=== PATIENT | male | born 1995 | race Caucasian/White ===

== ENCOUNTER 2017-01-10 02:56 | Observation (INO) | payer MEDICARE, OTHER ==
[2017-01-10 03:34] LABS: Basophils # (A) 0.1 k/uL (0-0.2); Basophils % (A) 1 %; CH 34.5; CHCM 36.5; Eosinophils # (A) 0.9 k/uL (0-0.7); Eosinophils % (A) 12 %; HCT 49.3 % (39.0-53.0); HDW 2.75; HGB 17.8 gm/dL (13.0-17.5); Luc # (Auto) 0.24; Luc % (Auto) 3; Lymphocytes # (A) 2.6 k/uL (1.0-4.8); Lymphocytes % (A) 36 %; MCH 34.4 pg (25.0-35.0); MCHC 36.2 g/dL (31.0-37.0); MCV 94.9 fL (80.0-100.0); Mean Platelet Volume 7.6; Monocytes # (A) 0.5 k/uL (0-1.0); Monocytes % (A) 6 %; Neutrophils # (A) 3.1 k/uL (1.3-7.7); Neutrophils % (A) 42 %; RBC 5.19 m/uL (4.30-5.90); RDW 13.2 % (11.5-15.5); WBC 7.3 k/uL (4.0-11.0); WBC (Perox) 7.34
[2017-01-10 03:44] LABS: ALT 31 U/L (21-72); AST 34 U/L (17-59); Alkaline Phosphatase 116 U/L (38-126); Anion Gap 18 mmol/L; Blood Urea Nitrogen 11 mg/dL (9-20); Calcium 9.7 mg/dL (8.4-10.2); Carbon Dioxide 22 mmol/L (22-30); Chloride 101 mmol/L (98-107); Glucose 90 mg/dL (74-99); Non-African American GFR(MDRD) >60 (>60 ml/min/1.73 sqM); Potassium 4.5 mmol/L (3.5-5.1); Sodium 141 mmol/L (137-145); Total Bilirubin 0.6 mg/dL (0.2-1.3); Total Protein 7.8 g/dL (6.3-8.2)
[2017-01-10] MEDS ORDERED: ONDANSETRON 4 MG/2 ML VIAL IVP PRN (04:36)
[2017-01-10] MEDS ORDERED: NALOXONE 0.4 MG/ML 1 ML VIAL IV PRN (04:36)
[2017-01-10] MEDS ORDERED: LORazepam 1 MG TAB PO PRN (04:43)
[2017-01-10] MEDS: DEXTROSE 5%-0.45% NACL 1,000 ML IV SCH (04:53)
--- NOTE | 2017-01-10 04:54 | ED ---
General Adult HPI - General Chief complaint: Seizure Stated complaint: Seizure Time Seen by Provider: 01/10/17 03:15 Source: patient, family, EMS, RN notes reviewed Mode of arrival: EMS - History of Present Illness Initial comments: 21-year-old male with known seizure disorder presents after being found in his bed with generalized tonic-clonic seizure. Unknown how long seizure activity lasted for. He was transported to the hospital with approximate postictal period of 45 minutes to an hour. Patient has no complaints the time my evaluation. He is somewhat sleepy but able to answer questions. Denies headache. Denies chest pain shortness of breath, Numbness tingling, or focal weakness. Patient does live in a alf, is uncertain of the medications he takes, and he is uncertain of the neurologist that he sees. Additional history was obtained from the patient's father who is his guardian. He states that he has seizure disorder and cognitive delay. He believes that his medications were reduced approximately one 1 month ago because his son was seizure free for some time. He is uncertain which medications were changed. Patient does see a neurologist at the [facility]. Patient's father denies any other medical history. - Related Data Home Medications Medication Instructions Recorded Confirmed LORazepam [Ativan] 1 mg PO BID 03/02/16 03/02/16 Previous Rx's Medication Instructions Recorded Clobazam [Onfi] 20 mg PO BID #0 03/01/16 Divalproex [Depakote] 250 mg PO BID #60 tablet. 03/01/16 OXcarbazepine [Trileptal] 300 mg PO BID #60 tab 03/01/16 Allergies Allergy/AdvReac Type Severity Reaction Status Date / Time No Known Allergies Allergy Verified 02/03/16 07:25 Review of Systems ROS Statement: Those systems with pertinent positive or pertinent negative responses have been documented in the HPI. ROS Other: All systems not noted in ROS Statement are negative. Past Medical History Past Medical History: Seizure Disorder Additional Past Medical History / Comment(s): status epilepticus, hepatitis- History of Any Multi-Drug Resistant Organisms: None Reported Past Surgical History: No Surgical Hx Reported Past Anesthesia/Blood Transfusion Reactions: No Reported Reaction Additional Past Anesthesia/Blood Transfusion Reaction / Comment(s): Pt has never had surgery. Past Psychological History: Anxiety, Depression Smoking Status: Never smoker Past Alcohol Use History: None Reported Past Drug Use History: None Reported - Past Family History Father Additional Family Medical History / Comment(s): epilepsy in 2 paternal aunts, father of brain aneurysm Brother(s) Additional Family Medical History / Comment(s): Patient has one brother and one stepsister. Mother Additional Family Medical History / Comment(s): Patient is unable to provide any information regarding his family medical history. General Exam General appearance: in no apparent distress, lethargic Head exam: Present: atraumatic, normocephalic Eye exam: Present: normal appearance, PERRL, EOMI ENT exam: Present: mucous membranes moist, other (No lateral tongue laceration) Neck exam: Present: normal inspection, full ROM. Absent: meningismus Respiratory exam: Present: normal lung sounds bilaterally. Absent: respiratory distress Cardiovascular Exam: Present: regular rate, normal rhythm GI/Abdominal exam: Present: soft. Absent: distended, tenderness Extremities exam: Present: normal inspection, full ROM, normal capillary refill. Absent: pedal edema Neurological exam: Present: alert, oriented X3, CN II-XII intact, other ( Patient is alert and oriented 3, slow to respond.). Absent: motor sensory deficit Psychiatric exam: Present: normal affect, normal mood Skin exam: Present: warm, dry Course Vital Signs 01/10/17 01/10/17 02:57 04:37 Temperature 97.8 F Pulse Rate 105 H 76 Respiratory 16 14 Rate Blood Pressure 124/71 121/69 O2 Sat by Pulse 98 99 Oximetry - Reevaluation(s) Reevaluation #1: 01/10/17 04:49 On reevaluation the patient's somewhat more alert, neurologic exam remains nonfocal. Patient continues to have no complaints of the emergency department. EKG Findings - EKG Comments: EKG Findings:: EKG shows normal sinus rhythm with a ventricular rate of 92, UT interval is 126, QRS duration 84, QTC is 395 Medical Decision Making - Medical Decision Making 21-year-old male with history of cognitive delay, and seizure disorder presents with reported history of seizure and prolonged postictal period patient is seizure free while in the emergency department. Laboratory studies including CBC, CMP and lactic acid are significant only for mild lactic acidosis consistent with seizure. Patient's medications were recently adjusted, unknown exactly what changes were made. This history was obtained from the patient's father. Patient is on Depakote and Depakote level is therapeutic on the low end of normal. He also takes Onfi and Ativan. Patient will be placed on seizure precautions, he will be admitted for observation and neurology evaluation. This was discussed with the patient's father and he is agreeable. Diagnosis: Seizure with prolonged postictal period - Lab Data Result diagrams: 01/10/17 03:04 01/10/17 03:04 Lab Results 01/10/17 01/10/17 01/10/17 Range/Units 03:04 03:04 03:04 WBC 7.3 (4.0-11.0) k/uL RBC 5.19 (4.30-5.90) m/uL Hgb 17.8 H (13.0-17.5) gm/dL Hct 49.3 (39.0-53.0) % MCV 94.9 (80.0-100.0) fL MCH 34.4 (25.0-35.0) pg MCHC 36.2 (31.0-37.0) g/dL RDW 13.2 (11.5-15.5) % Plt Count 233 (150-450) k/uL Neutrophils % 42 % Lymphocytes % 36 % Monocytes % 6 % Eosinophils % 12 % Basophils % 1 % Neutrophils # 3.1 (1.3-7.7) k/uL Lymphocytes # 2.6 (1.0-4.8) k/uL Monocytes # 0.5 (0-1.0) k/uL Eosinophils # 0.9 H (0-0.7) k/uL Basophils # 0.1 (0-0.2) k/uL Sodium 141 (137-145) mmol/L Potassium 4.5 (3.5-5.1) mmol/L Chloride 101 (98-107) mmol/L Carbon Dioxide 22 (22-30) mmol/L Anion Gap 18 mmol/L BUN 11 (9-20) mg/dL Creatinine 1.00 (0.66-1.25) mg/dL Est GFR (MDRD) Af Amer >60 (>60 ml/min/1.73 sqM) Est GFR (MDRD) Non-Af >60 (>60 ml/min/1.73 sqM) Glucose 90 (74-99) mg/dL Plasma Lactic Acid Tyshawn 2.7 H* (0.7-2.0) mmol/L Calcium 9.7 (8.4-10.2) mg/dL Total Bilirubin 0.6 (0.2-1.3) mg/dL AST 34 (17-59) U/L ALT 31 (21-72) U/L Alkaline Phosphatase 116 (38-126) U/L Total Protein 7.8 (6.3-8.2) g/dL Albumin 4.8 (3.5-5.0) g/dL Valproic Acid 62.8 ug/mL Disposition Clinical Impression: Seizure disorder Disposition: ADMITTED IP TO THIS [facility] Condition: Stable Referrals: Fortino Polanco MD [Primary Care Provider] - 1-2 days Decision to Admit Reason: Admit from EC Decision Date: 01/10/17 Decision Time: 04:53
[2017-01-10 05:46] VITALS: BMI 23.8
[2017-01-10] MEDS: DIVALPROEX 250 MG TABLET.DR PO SCH (09:15)
--- NOTE | 2017-01-10 13:59 | P.HPIM ---
History of Present Illness 21-year-old male with known seizure disorder presents after being found in his bed with generalized tonic-clonic seizure. Unknown how long seizure activity lasted for. He was transported to the hospital with approximate postictal period of 45 minutes to an hour. Patient is still a bit bit lethargic when I valid the patient and patient denied any fever, chills, nausea, vomiting, abdominal pain, dysuria, headache patient was diagnosed with seizures since he was a child. Denies headache. Denies chest pain shortness of breath, Numbness tingling, or focal weakness. Patient does live in a retirement, is uncertain of the medications he takes, and he is uncertain of the neurologist that he sees. He believes that his medications were reduced approximately one 1 month ago because his son was seizure free for some time. The patient was on Depakote and Depakote levels are within normal limits and the patient is also on clobazam. He is uncertain which medications were changed. Patient does see a neurologist at the [facility]. Patient's father denies any other medical history. Review of Systems REVIEW OF SYSTEMS: CONSTITUTIONAL: No fever, no malaise, no fatigue. HEENT: No recent visual problems or hearing problems. Denied any sore throat. CARDIOVASCULAR: No chest pain, orthopnea, PND, no palpitations, no syncope. PULMONARY: No shortness of breath, no cough, no hemoptysis. GASTROINTESTINAL: No diarrhea, no nausea, no vomiting, no abdominal pain. Normoactive bowel sounds. NEUROLOGICAL: No headaches, no weakness, no numbness. HEMATOLOGICAL: Denies any bleeding or petechiae. GENITOURINARY: Denies any burning micturition, frequency, or urgency. MUSCULOSKELETAL/RHEUMATOLOGICAL: Denies any joint pain, swelling, or any muscle pain. ENDOCRINE: Denies any polyuria or polydipsia. The rest of the 14-point review of systems is negative. Past Medical History Past Medical History: Seizure Disorder Additional Past Medical History / Comment(s): status epilepticus, hepatitis- History of Any Multi-Drug Resistant Organisms: None Reported Past Surgical History: No Surgical Hx Reported Past Anesthesia/Blood Transfusion Reactions: No Reported Reaction Additional Past Anesthesia/Blood Transfusion Reaction / Comment(s): Pt has never had surgery. Past Psychological History: Anxiety, Depression Additional Psychological History / Comment(s): Pt lives now at [facility]. Prior to that he lived for 12 yrs with his LG Jose/Melanie Medina. He is independent with his ADLs. Jose states pt can have a temper. Smoking Status: Never smoker Past Alcohol Use History: None Reported Additional Past Alcohol Use History / Comment(s): Patient is a lifelong nonsmoker. He denies any medical marijuana, marijuana, street drug or alcohol use. Past Drug Use History: None Reported - Past Family History Father Additional Family Medical History / Comment(s): epilepsy in 2 paternal aunts, father of brain aneurysm Brother(s) Additional Family Medical History / Comment(s): Patient has one brother and one stepsister. Mother Additional Family Medical History / Comment(s): Patient is unable to provide any information regarding his family medical history. Medications and Allergies Home Medications Medication Instructions Recorded Confirmed Type LORazepam [Ativan] 1 mg PO BID PRN 03/02/16 01/10/17 History Allergies Allergy/AdvReac Type Severity Reaction Status Date / Time No Known Allergies Allergy Verified 01/10/17 07:56 Physical Exam Vitals: Vital Signs Temp Pulse Pulse Resp BP BP Pulse Ox 01/10/17 08:18 98 01/10/17 07:00 97.6 F 60 15 99/57 99 01/10/17 04:37 76 14 121/69 99 01/10/17 02:57 97.8 F 105 H 16 124/71 98 Intake and Output 01/09/17 01/10/17 01/10/17 22:59 06:59 14:59 Other: Voiding Method Urinal Weight 71 kg PHYSICAL EXAMINATION: GENERAL: The patient is alert and oriented x3, not in any acute distress. Well developed, well nourished. HEENT: Pupils are round and equally reacting to light. EOMI. No scleral icterus. No conjunctival pallor. Normocephalic, atraumatic. No pharyngeal erythema. No thyromegaly. CARDIOVASCULAR: S1 and S2 present. No murmurs, rubs, or gallops. PULMONARY: Chest is clear to auscultation, no wheezing or crackles. ABDOMEN: Soft, nontender, nondistended, normoactive bowel sounds. No palpable organomegaly. MUSCULOSKELETAL: No joint swelling or deformity. EXTREMITIES: No cyanosis, clubbing, or pedal edema. NEUROLOGICAL: Gross neurological examination did not reveal any focal deficits. SKIN: No rashes. Results CBC & Chem 7: 01/10/17 03:04 01/10/17 03:04 Labs: Abnormal Lab Results - Last 24 Hours (Table) 01/10/17 01/10/17 Range/Units 03:04 03:04 Hgb 17.8 H (13.0-17.5) gm/dL Eosinophils # 0.9 H (0-0.7) k/uL Plasma Lactic Acid Tyshawn 2.7 H* (0.7-2.0) mmol/L Thrombosis Risk Factor Assmnt - Choose All That Apply Any of the Below Risk Factors Present?: No Other Risk Factors: No Other congenital or acquired thrombophilia - If yes, enter type in comment: No Thrombosis Risk Factor Assessment Level: Very Low Risk Assessment and Plan Plan: #1 seizure disorder and patient is admitted for break through seizures: Patient will be continued on his Depakote levels of which are essentially within normal limits and patient will be resumed back on his other antiseizure medication clobazam and neurology will be consulted EEG will be obtained. Patient will be on seizure precautions. I do not see any prostrating factor for his seizures. #2 lactic is doses: Secondary to seizure patient will be continued on IV fluids.
[2017-01-10 19:28] LABS: Appearance,Urine Cloudy (Clear); Bilirubin,Urine Negative (Negative); Glucose,Urine (UA) Negative (Negative); Ketones,Urine Negative (Negative); Leukocyte Esterase,Urine Negative (Negative); Mucus,Urine Occasional /hpf; Nitrite,Urine Negative (Negative); Particle Count 13117; Protein,Urine 1+ (Negative); RBC,Urine 12 /hpf (0-5); Specific Gravity,Urine 1.016 (1.001-1.035); Sperm,Urine Many /hpf; Squamous Epithelial Cell,Urine 1 /hpf (0-4); UA Billing (MACRO vs. MICRO) MICRO; Urobilinogen,Urine <2.0 mg/dL (<2.0); WBC,Urine 13 /hpf (0-5)
[2017-01-10 20:18] VITALS: RESP 16
[2017-01-10] MEDS ORDERED: DIVALPROEX 250 MG TABLET.DR PO STA (22:44)
--- NOTE | 2017-01-10 22:51 | P.CNNES ---
History of Present Illness Consult date: 01/10/17 History of Present Illness: The patient is a 21-year-old left-handed white male with history of left see and admitted to delay. He is resident of [facility] home. He sees a neurologist at [facility] [place]. Apparently one of his seizure medications were reduced recently but family does not know which. The patient is admitted with a breakthrough seizure. This seizure was not witnessed and it is unknown how long it lasted. He did have a post ictal period of about 45 minutes to an hour. The patient is taking Depakote clobazam the and Trileptal for seizure management. The patient denies any headache dizziness weakness or numbness. He states he is feeling his usual self and has no particular pain or complaint. The patient has had seizures since childhood. He states that they do not occur very frequently. Review of Systems ROS unobtainable: due to mental status Past Medical History Past Medical History: Seizure Disorder Additional Past Medical History / Comment(s): status epilepticus, hepatitis- History of Any Multi-Drug Resistant Organisms: None Reported Past Surgical History: No Surgical Hx Reported Past Anesthesia/Blood Transfusion Reactions: No Reported Reaction Additional Past Anesthesia/Blood Transfusion Reaction / Comment(s): Pt has never had surgery. Past Psychological History: Anxiety, Depression Additional Psychological History / Comment(s): Pt lives now at [facility]. Prior to that he lived for 12 yrs with his LG Jose/Melanie Medina. He is independent with his ADLs. Jose states pt can have a temper. Smoking Status: Never smoker Past Alcohol Use History: None Reported Additional Past Alcohol Use History / Comment(s): Patient is a lifelong nonsmoker. He denies any medical marijuana, marijuana, street drug or alcohol use. Past Drug Use History: None Reported - Past Family History Father Additional Family Medical History / Comment(s): epilepsy in 2 paternal aunts, father of brain aneurysm Brother(s) Additional Family Medical History / Comment(s): Patient has one brother and one stepsister. Mother Additional Family Medical History / Comment(s): Patient is unable to provide any information regarding his family medical history. Medications and Allergies Home Medications Medication Instructions Recorded Confirmed Type LORazepam [Ativan] 1 mg PO BID PRN 03/02/16 01/10/17 History Allergies Allergy/AdvReac Type Severity Reaction Status Date / Time No Known Allergies Allergy Verified 01/10/17 07:56 Physical Examination - Vital Signs Vital Signs: Vital Signs Temp Pulse Pulse Pulse Resp BP BP 01/10/17 20:17 97.1 F L 83 16 102/61 01/10/17 16:00 15 01/10/17 15:00 97.9 F 60 16 108/64 01/10/17 08:18 01/10/17 07:00 97.6 F 60 15 99/57 01/10/17 04:37 76 14 121/69 01/10/17 02:57 97.8 F 105 H 16 124/71 Pulse Ox 01/10/17 20:17 97 01/10/17 16:00 01/10/17 15:00 97 01/10/17 08:18 98 01/10/17 07:00 99 01/10/17 04:37 99 01/10/17 02:57 98 Intake and Output 01/10/17 01/10/17 01/10/17 06:59 14:59 22:59 Intake Total 640 480 Balance 640 480 Intake: Intake, IV Titration 160 Amount Dextrose 5%-0.45% NaCl 1, 160 000 ml @ 20 mls/hr IV . Q24H [facility] Rx#:[id number] Oral 480 480 Other: Voiding Method Urinal Urinal Weight 71 kg - Constitutional General appearance: average body habitus - EENT EENT: PERRL, hearing intact, vision intact - Respiratory Respiratory: chest non-tender, lungs clear - Cardiovascular Cardiovascular: regular rate, normal S1, normal S2 - Integumentary Integumentary: normal - Neurologic Mental status the patient was awake and alert he knew he was in [facility] he was able to give his full name he did have mild cognitive impairment there is no a aphasia or dysarthria Cranial nerve examination: PERRL, EOMI, VFF, V1/V2/V3 grossly intact, face symmetric, tongue midline Speech examination: intact Sensorimotor examination: intact Detailed motor examination: grossly full strength in all extremities Motor examination - right side: 5/5: biceps, triceps, wrist flexion, wrist extension, catalog specialist, hip flexors, knee extensors, dorsiflexion, toe extension (EHL) , plantarflexion Motor examination - left side: 5/5: biceps, triceps, wrist flexion, wrist extension, catalog specialist, hip flexors, knee extensors, dorsiflexion, toe extension (EHL) , plantarflexion Reflexes: 2+: knee - Psychiatric Psychiatric: cooperative Results - Laboratory Findings CBC and BMP: 01/10/17 03:04 01/10/17 03:04 Abnormal Lab Findings: Abnormal Labs 01/10/17 01/10/17 01/10/17 03:04 03:04 19:14 Hgb 17.8 H Eosinophils # 0.9 H Plasma Lactic Acid Tyshawn 2.7 H* Urine Protein 1+ H Urine RBC 12 H Urine WBC 13 H Urine Mucus Occasional H Urine Sperm Many H Assessment and Plan (1) Recurrent seizures Status: Acute Code(s): G40.909 - EPILEPSY, UNSP, NOT INTRACTABLE, WITHOUT STATUS EPILEPTICUS (2) Seizure disorder Status: Acute Code(s): G40.909 - EPILEPSY, UNSP, NOT INTRACTABLE, WITHOUT STATUS EPILEPTICUS Plan: The patient is a 21-year-old man a resident of [facility] who presents to the hospital with breakthrough seizure. Duration of seizures on known since it was not witnessed. Patient is back to his baseline. He denies any complaint. His breakthrough seizure may have been related to the reduction of an anticonvulsant medication recently. His Depakote level is 62.8. Recommend giving higher dose of Depakote he is currently on 250 twice a day we'll increase Depakote to 250 3 times a day. He will continue on clobazam and Trileptal as before. Also recommend CT brain. He had an EEG which did not show any epileptiform activity
[2017-01-11] MEDS ORDERED: LORazepam 2 MG/ML SYRINGE IV STA (04:07)
[2017-01-11] MEDS ORDERED: LORazepam 2 MG/ML SYRINGE IV PRN (04:09)
--- NOTE | 2017-01-11 04:48 | EEG ---
DATE OF SERVICE: 01/10/2017 ELECTROENCEPHALOGRAPHIC EXAMINATION REPORT INDICATION FOR EXAMINATION: This patient is a 21-year-old male being evaluated for breakthrough seizures. Patient has history of seizure disorder and had breakthrough seizures today. Age: 21. EEG FINDINGS: A routine 21 channel awake, digital EEG recording was accomplished utilizing the 10-20 international system with bipolar and referential montages. The background activity in the most alert, resting state consists of a low to medium amplitude, fairly well developed and well sustained 7-8 Hz activity over the posterior head regions. This posterior rhythm attenuates to eye opening. There is a small amount of low amplitude 18-20 Hz beta activity seen maximally over the anterior head regions. Muscle and movement artifact was observed on a few occasions during the tracing. Hyperventilation was not performed. Photic stimulation at flash frequencies of 2 -30 Hz produced a minimal occipital driving response. No epileptiform discharges were seen. IMPRESSION: This EEG is within normal limits for the patient's age. The EEG failed to reveal any focal, lateralized or epileptiform abnormalities. Clinical correlation is recommended . [facility]
[2017-01-11] MEDS ORDERED: DIVALPROEX 250 MG TABLET.DR PO STA ×2 (05:59→15:19)
[2017-01-11] MEDS: DIVALPROEX 250 MG TABLET.DR PO SCH ×2 (06:01→09:50)
[2017-01-11] MEDS ORDERED: DIVALPROEX 250 MG TABLET.DR PO SCH (09:00)
--- NOTE | 2017-01-11 09:09 | CT ---
EXAMINATION TYPE: CT brain wo con DATE OF EXAM: 01/11/2017 COMPARISON: Previous study dated 02/11/2016. HISTORY: Seizure CT DLP: 1012.7 mGycm Automated exposure control for dose reduction was used. FINDINGS: Central structures are midline. There is no evidence of hydrocephalus. No acute focal lesion, mass ef fect or midline shift is seen. I do not see evidence of intracranial blood. Visualized portions of the paranasal sinuses and mastoids are clear. No depressed skull fracture is s een. IMPRESSION: NORMAL CT SCAN OF THE BRAIN.
[2017-01-11] MEDS: DEXTROSE 5%-0.45% NACL 1,000 ML IV SCH (09:32)
[2017-01-11] MEDS ORDERED: OXcarbazepine 300 MG TAB PO SCH (09:45)
[2017-01-11] MEDS ORDERED: ONFI 20 MG PO SCH (11:00)
[2017-01-11] MEDS: CLOBAZAM 20 MG PO SCH ×2 (11:05→11:06)
--- NOTE | 2017-01-11 11:59 | P.DS ---
Providers Date of admission: 01/10/17 04:36 Attending physician: Satinder Lackey Consults: 01/10/17 04:39 Consult Physician Urgent Consulting Provider: Mariya Diaz Consult Reason/Comments: Seizure with prolonged postictal period Do you want consulting provider notified?: Yes, Notify in am Primary care physician: [facility] Course: 21-year-old gentleman admitted for breakthrough seizures. Patient with episode of seizure as today as he didn't receive his clobazam. Patient was started back on this medication. And patient dose of valproic acid was increased to 250 3 times a day and patient did not have any seizure-like activity on the EEG. And patient was also started on Trileptal. Patient will be discharged on these medications once cleared by neurology. PHYSICAL EXAMINATION: GENERAL: The patient is alert and oriented x3, not in any acute distress. Well developed, well nourished. HEENT: Pupils are round and equally reacting to light. EOMI. No scleral icterus. No conjunctival pallor. Normocephalic, atraumatic. No pharyngeal erythema. No thyromegaly. CARDIOVASCULAR: S1 and S2 present. No murmurs, rubs, or gallops. PULMONARY: Chest is clear to auscultation, no wheezing or crackles. ABDOMEN: Soft, nontender, nondistended, normoactive bowel sounds. No palpable organomegaly. MUSCULOSKELETAL: No joint swelling or deformity. EXTREMITIES: No cyanosis, clubbing, or pedal edema. NEUROLOGICAL: Gross neurological examination did not reveal any focal deficits. SKIN: No rashes. #1 seizure disorder and patient is admitted for break through seizures: #2 lactic is doses: Secondary to seizure patient was on IV fluids. Patient Condition at Discharge: Stable Plan - Discharge Summary New Discharge Prescriptions: New Divalproex [Depakote] 250 mg PO TID #60 tab OXcarbazepine [Trileptal] 300 mg PO BID #60 tab Continue Clobazam [Onfi] 20 mg PO BID #0 LORazepam [Ativan] 1 mg PO BID PRN PRN Reason: Anxiety Discontinued Divalproex [Depakote] 250 mg PO BID #60 tablet.dr Discharge Medication List Clobazam [Onfi] 20 mg PO BID #0 03/01/16 [Rx] LORazepam [Ativan] 1 mg PO BID PRN 03/02/16 [History] Divalproex [Depakote] 250 mg PO TID #60 tab 01/11/17 [Rx] OXcarbazepine [Trileptal] 300 mg PO BID #60 tab 01/11/17 [Rx] Follow up Appointment(s)/Referral(s): Fortino Polanco MD [Primary Care Provider] - 3 Days Discharge Disposition: HOME SELF-CARE
[2017-01-11 14:00] VITALS: BP 102/62; PULSE 83; TEMP 97.2
== END 2017-01-11 17:16 | disposition home or self-care (01) ==
LOC: EC 02:56 → EEVIPCON 02:56 → 3SUR 04:36
PROVIDERS: ADMIT Hospitalist; ATTEND Hospitalist
DX: G40.401 Other generalized epilepsy and epileptic syndromes, not intractable, with status epilepticus (principal); Z79.899 Other long term (current) drug therapy; F41.9 Anxiety disorder, unspecified; G31.84 Mild cognitive impairment of uncertain or unknown etiology
CPT/HCPCS: 96374; 99285; 36415; 94760; 95816; 93005; 80164 ×2; 80053; 80183; 83605; 85025; 81001; 70450; G0378 ×2; J2060

== ENCOUNTER 2017-02-06 17:40 | Emergency (ER) | payer MEDICARE, OTHER ==
[2017-02-06 17:46] VITALS: BP 119/69; PULSE 88; RESP 18; TEMP 98.2
[2017-02-06] MEDS ORDERED: IBUPROFEN 600 MG TAB PO STA (17:55)
--- NOTE | 2017-02-06 18:17 | ED ---
Upper Extremity HPI - General Chief Complaint: Extremity Injury, Upper Stated Complaint: finger pain Time Seen by Provider: 02/06/17 17:53 Source: patient Mode of arrival: ambulatory Limitations: no limitations - History of Present Illness Initial Comments: 21-year-old male patient presented to emergency department today for evaluation of right fourth finger pain. Patient states that he was playing basketball earlier today however he is for any specific injury. Patient states that the finger is swollen, and painful with movement. Denies any numbness to the finger. Denies any hand, wrist, arm, or shoulder pain. Patient denies any falls. Patient denies any headache, neck pain, back pain, chest pain, shortness of breath, dizziness, weakness, abdominal pain, nausea, vomiting, or difficulties with bowel movements or urination. - Related Data Home Medications Medication Instructions Recorded Confirmed Clobazam [Onfi] 20 mg PO BID 02/06/17 02/06/17 Previous Rx's Medication Instructions Recorded Divalproex [Depakote] 250 mg PO TID #60 tab 01/11/17 OXcarbazepine [Trileptal] 300 mg PO BID #60 tab 01/11/17 Allergies Allergy/AdvReac Type Severity Reaction Status Date / Time No Known Allergies Allergy Verified 02/06/17 17:54 Review of Systems ROS Statement: Those systems with pertinent positive or pertinent negative responses have been documented in the HPI. ROS Other: All systems not noted in ROS Statement are negative. Past Medical History Past Medical History: Seizure Disorder Additional Past Medical History / Comment(s): status epilepticus, hepatitis- History of Any Multi-Drug Resistant Organisms: None Reported Past Surgical History: No Surgical Hx Reported Past Anesthesia/Blood Transfusion Reactions: No Reported Reaction Additional Past Anesthesia/Blood Transfusion Reaction / Comment(s): Pt has never had surgery. Past Psychological History: Anxiety, Depression Smoking Status: Never smoker Past Alcohol Use History: None Reported Past Drug Use History: None Reported - Past Family History Father Additional Family Medical History / Comment(s): epilepsy in 2 paternal aunts, father of brain aneurysm Brother(s) Additional Family Medical History / Comment(s): Patient has one brother and one stepsister. Mother Additional Family Medical History / Comment(s): Patient is unable to provide any information regarding his family medical history. General Exam Limitations: no limitations General appearance: alert, in no apparent distress Respiratory exam: Present: normal lung sounds bilaterally. Absent: respiratory distress, wheezes, rales, rhonchi, stridor Cardiovascular Exam: Present: regular rate, normal rhythm, normal heart sounds. Absent: systolic murmur, diastolic murmur, rubs, gallop, clicks Extremities exam: Present: normal inspection, full ROM, normal capillary refill , other (Soft tissue swelling noted to the PIP joint on the right fourth finger. Skin otherwise pink, warm, and dry. Cap refill is less than 3 seconds. ). Absent: tenderness, pedal edema, joint swelling, calf tenderness Neurological exam: Present: alert, oriented X3, CN II-XII intact Psychiatric exam: Present: normal affect, normal mood Skin exam: Present: warm, dry, intact, normal color. Absent: rash Course Vital Signs 02/06/17 17:40 Temperature 98.2 F Pulse Rate 88 Respiratory 18 Rate Blood Pressure 119/69 O2 Sat by Pulse 97 Oximetry Medical Decision Making - Medical Decision Making 21-year-old male patient presented to emergency department today for evaluation of right fourth finger injury. X-ray was obtained and did show some soft tissue swelling however no acute fracture or dislocation. Patient was given a finger splint and instructed to follow-up with his primary care physician for recheck in 7-10 days if he is still having pain. Patient instructed to rest, ice, and elevate the extremity. Instructed to return immediately for any new, worsening, or concerning symptoms. Patient and legal guardian verbalized understanding and agreed with this plan. - Radiology Data Radiology results: report reviewed, image reviewed 3 views of the right fourth finger shows soft tissue swelling around the PIP joint. I see no fracture nor dislocation. Impression by Dr. Lopes shows soft tissue swelling. No fracture seen of the right ring finger. Disposition Clinical Impression: Finger injury Disposition: HOME SELF-CARE Condition: Good Instructions: Finger Sprain (ED) Additional Instructions: Wrist splint for comfort. Ibuprofen or Tylenol for pain control. Rest and ice the extremity. Follow-up with primary care physician in one to 2 days for recheck. Return immediately for any new, worsening, or concerning symptoms. Referrals: None,Stated [Primary Care Provider] - 1-2 days Time of Disposition: 18:44
--- NOTE | 2017-02-06 18:35 | XR ---
EXAMINATION TYPE: XR finger RT DATE OF EXAM: 02/06/2017 COMPARISON: NONE HISTORY: Jammed finger. Pain. TECHNIQUE: 3 views FINDINGS: There is soft tissue swelling around the PIP joint. I see no fracture nor dislocation. IMPRESSION: Soft tissue swelling. No fracture seen of the right ring finger.
== END 2017-02-06 18:51 | disposition home or self-care (01) ==
LOC: EC 17:40
DX: S69.91XA Unspecified injury of right wrist, hand and finger(s), initial encounter (principal); M79.89 Other specified soft tissue disorders; F41.9 Anxiety disorder, unspecified; Z79.899 Other long term (current) drug therapy; W21.05XA Struck by basketball, initial encounter; Y93.67 Activity, basketball
CPT/HCPCS: 99283

== ENCOUNTER 2017-06-07 17:24 | Emergency (ER) | payer MEDICARE, OTHER ==
[2017-06-07 17:33] VITALS: TEMP 97.9
[2017-06-07 18:09] LABS: Basophils # (A) 0.1 k/uL (0-0.2); Basophils % (A) 1 %; Eosinophils % (A) 14 %; HCT 49.4 % (39.0-53.0); Lymphocytes # (A) 2.1 k/uL (1.0-4.8); Lymphocytes % (A) 28 %; MCH 32.9 pg (25.0-35.0); MCHC 34.4 g/dL (31.0-37.0); MCV 95.8 fL (80.0-100.0); Mean Platelet Volume 7.5; Monocytes # (A) 0.5 k/uL (0-1.0); Monocytes % (A) 7 %; Neutrophils # (A) 3.6 k/uL (1.3-7.7); Neutrophils % (A) 49 %; Platelet Count 186 k/uL (150-450); RBC 5.16 m/uL (4.30-5.90); RDW 13.2 % (11.5-15.5); WBC 7.3 k/uL (3.8-10.6)
[2017-06-07 18:17] LABS: Anion Gap 12 mmol/L; Blood Urea Nitrogen 15 mg/dL (9-20); Calcium 9.8 mg/dL (8.4-10.2); Carbon Dioxide 29 mmol/L (22-30); Chloride 101 mmol/L (98-107); Glucose 93 mg/dL (74-99); Potassium 4.6 mmol/L (3.5-5.1); Sodium 142 mmol/L (137-145)
--- NOTE | 2017-06-07 18:20 | ED ---
Seizure HPI - General Chief Complaint: Seizure Stated Complaint: seizure Time Seen by Provider: 06/07/17 17:29 Source: patient, EMS, RN notes reviewed, old records reviewed Mode of arrival: EMS Limitations: no limitations - History of Present Illness Initial Comments: 22-year-old male presents the emergency department chief complaint of a questionable seizure like episode. Patient reports that he was at a dance at a [employer] alliance party and saw flashing lights and thought he was going to have a seizure. He had no specific seizure activity. He then went home to his correction, and told them about the symptoms. They called him to be further evaluated. When arriving to the emergency department. Patient reports that he feels otherwise well. Denies any headache vision changes or other symptoms at this time. He does take Depakote. He does take his medication has a supposed to. - Related Data Home Medications Medication Instructions Recorded Confirmed Clobazam [Onfi] 20 mg PO BID 02/06/17 06/07/17 Previous Rx's Medication Instructions Recorded Divalproex [Depakote] 250 mg PO TID #60 tab 01/11/17 OXcarbazepine [Trileptal] 300 mg PO BID #60 tab 01/11/17 Allergies Allergy/AdvReac Type Severity Reaction Status Date / Time No Known Allergies Allergy Verified 06/07/17 18:27 Review of Systems ROS Statement: Those systems with pertinent positive or pertinent negative responses have been documented in the HPI. ROS Other: All systems not noted in ROS Statement are negative. Past Medical History Past Medical History: Seizure Disorder Additional Past Medical History / Comment(s): status epilepticus, hepatitis- History of Any Multi-Drug Resistant Organisms: None Reported Past Surgical History: No Surgical Hx Reported Additional Past Surgical History / Comment(s): left wrist surgery Past Anesthesia/Blood Transfusion Reactions: No Reported Reaction Additional Past Anesthesia/Blood Transfusion Reaction / Comment(s): Pt has never had surgery. Past Psychological History: Anxiety, Depression Smoking Status: Never smoker Past Alcohol Use History: None Reported Past Drug Use History: None Reported - Past Family History Father Additional Family Medical History / Comment(s): epilepsy in 2 paternal aunts, father of brain aneurysm Brother(s) Additional Family Medical History / Comment(s): Patient has one brother and one stepsister. Mother Additional Family Medical History / Comment(s): Patient is unable to provide any information regarding his family medical history. General Exam Limitations: no limitations Course Vital Signs 06/07/17 17:29 Temperature 97.9 F Pulse Rate 79 Respiratory 16 Rate Blood Pressure 132/75 O2 Sat by Pulse 97 Oximetry Medical Decision Making - Medical Decision Making This is a 22-year-old male with a history of a feeling like he may likely have a seizure after seeing flashing lights. He rides emergency department with no seizure episode, is not postictal, otherwise feels well. He does take Depakote for chronic seizures. At this time he has no neurological deficits and looks well. I did check patient's Depakote level which was in therapeutic range, CBC and BMP are also normal. Patient's informed of all these results. Discussed that he needs follow-up with his primary care provider as well as his neurologist. Discussed there is negative at this time to prevent a future seizure. I discussed his take his medication as directed. Patient agrees to treatment plan will comply. He'll be discharged home. - Lab Data Result diagrams: 06/07/17 17:34 06/07/17 17:34 Lab Results 06/07/17 06/07/17 Range/Units 17:34 17:34 WBC 7.3 (3.8-10.6) k/uL RBC 5.16 (4.30-5.90) m/uL Hgb 17.0 (13.0-17.5) gm/dL Hct 49.4 (39.0-53.0) % MCV 95.8 (80.0-100.0) fL MCH 32.9 (25.0-35.0) pg MCHC 34.4 (31.0-37.0) g/dL RDW 13.2 (11.5-15.5) % Plt Count 186 (150-450) k/uL Neutrophils % 49 % Lymphocytes % 28 % Monocytes % 7 % Eosinophils % 14 % Basophils % 1 % Neutrophils # 3.6 (1.3-7.7) k/uL Lymphocytes # 2.1 (1.0-4.8) k/uL Monocytes # 0.5 (0-1.0) k/uL Eosinophils # 1.0 H (0-0.7) k/uL Basophils # 0.1 (0-0.2) k/uL Sodium 142 (137-145) mmol/L Potassium 4.6 (3.5-5.1) mmol/L Chloride 101 (98-107) mmol/L Carbon Dioxide 29 (22-30) mmol/L Anion Gap 12 mmol/L BUN 15 (9-20) mg/dL Creatinine 1.10 (0.66-1.25) mg/dL Est GFR (MDRD) Af Amer >60 (>60 ml/min/1.73 sqM) Est GFR (MDRD) Non-Af >60 (>60 ml/min/1.73 sqM) Glucose 93 (74-99) mg/dL Calcium 9.8 (8.4-10.2) mg/dL Valproic Acid 79.3 ug/mL Disposition Clinical Impression: History of seizure disorder Disposition: HOME SELF-CARE Condition: Good Instructions: Recurrent Seizures in Adults (ED) Additional Instructions: Patient advised to follow-up with primary care provider as well as neurologist. Return to the emergency department if any alarming signs or symptoms occur. Referrals: Fortino Polanco MD [Primary Care Provider] - 1-2 days Time of Disposition: 18:54
[2017-06-07 18:22] LABS: Valproic Acid (Depakene) 79.3 ug/mL
[2017-06-07 19:19] VITALS: BP 127/69; PULSE 71; RESP 18
--- NOTE | 2017-06-20 23:14 | CDI ---
Documentation Clarification OP Dear Vaibhav DUKE MD, Please add addendum for Physical examination. Thank you, Vannessa. [employer] Supervisor. If you have any questions please contact records and information manager at [phone]. mtdD
== END 2017-06-07 19:19 | disposition home or self-care (01) ==
LOC: SUPCPDRO 17:24 → EC 17:24
DX: G40.909 Epilepsy, unspecified, not intractable, without status epilepticus (principal); R40.2412 Glasgow coma scale score 13-15, at arrival to emergency department; Z82.0 Family history of epilepsy and other diseases of the nervous system; Z79.899 Other long term (current) drug therapy
CPT/HCPCS: 36415; 80048; 80164; 85025; 99285

== ENCOUNTER 2017-11-16 22:30 | Emergency (ER) | payer MEDICARE, OTHER ==
--- NOTE | 2017-11-17 01:45 | XR ---
EXAMINATION TYPE: XR ankle complete RT DATE OF EXAM: 11/17/2017 COMPARISON: NONE HISTORY: Ankle pain TECHNIQUE: 3 views FINDINGS: There is soft tissue swelling over the lateral malleolus. I see no fracture nor dislocation . IMPRESSION: Soft tissue swelling. No fracture.
--- NOTE | 2017-11-17 02:22 | ED ---
Lower Extremity Injury HPI - General Chief Complaint: Extremity Injury, Lower Stated Complaint: ankle pain Time Seen by Provider: 11/17/17 01:08 Source: patient, RN notes reviewed, old records reviewed Mode of arrival: ambulatory Limitations: no limitations - History of Present Illness Initial Comments: Patient is a 29 year old male, that states he was running on the track and rolled his right ankle and fell. He is complaining of pain towards the medial aspect.Patient states the injury happened two days ago. Denies paresthesias. Denies previous injury to foot or ankle. He has been able to ambulate without difficulty. He relates that he also has bilateral knee abrasions. - Related Data Home Medications Medication Instructions Recorded Confirmed Clobazam [Onfi] 20 mg PO BID 02/06/17 06/07/17 Previous Rx's Medication Instructions Recorded Divalproex [Depakote] 250 mg PO TID #60 tab 01/11/17 OXcarbazepine [Trileptal] 300 mg PO BID #60 tab 01/11/17 Ibuprofen [Motrin] 400 mg PO Q4H #20 tab 11/17/17 Allergies Allergy/AdvReac Type Severity Reaction Status Date / Time No Known Allergies Allergy Verified 11/16/17 23:33 Review of Systems ROS Statement: Those systems with pertinent positive or pertinent negative responses have been documented in the HPI. ROS Other: All systems not noted in ROS Statement are negative. Past Medical History Past Medical History: Seizure Disorder Additional Past Medical History / Comment(s): status epilepticus, hepatitis- History of Any Multi-Drug Resistant Organisms: None Reported Past Surgical History: No Surgical Hx Reported Additional Past Surgical History / Comment(s): left wrist surgery Past Anesthesia/Blood Transfusion Reactions: No Reported Reaction Additional Past Anesthesia/Blood Transfusion Reaction / Comment(s): Pt has never had surgery. Past Psychological History: Anxiety, Depression Smoking Status: Never smoker Past Alcohol Use History: None Reported Past Drug Use History: None Reported - Past Family History Father Additional Family Medical History / Comment(s): epilepsy in 2 paternal aunts, father of brain aneurysm Brother(s) Additional Family Medical History / Comment(s): Patient has one brother and one stepsister. Mother Additional Family Medical History / Comment(s): Patient is unable to provide any information regarding his family medical history. General Exam - General Exam Comments Initial Comments: This is a 22 year old male, alert and oriented. Limitations: no limitations General appearance: alert, in no apparent distress Head exam: Present: atraumatic, normocephalic, normal inspection Eye exam: Present: normal appearance, PERRL, EOMI. Absent: scleral icterus, conjunctival injection, periorbital swelling Respiratory exam: Present: normal lung sounds bilaterally. Absent: respiratory distress, wheezes, rales, rhonchi, stridor Cardiovascular Exam: Present: regular rate, normal rhythm, normal heart sounds. Absent: systolic murmur, diastolic murmur, rubs, gallop, clicks GI/Abdominal exam: Present: soft, normal bowel sounds. Absent: distended, tenderness, guarding, rebound, rigid Extremities exam: Present: normal inspection, full ROM, normal capillary refill. Absent: tenderness, pedal edema, joint swelling, calf tenderness Right Knee exam: Present: abrasion. Absent: normal inspection Lower Leg exam: Present: normal inspection, full ROM Ankle exam: Present: tenderness, swelling (over medial aspect of ankle. ). Absent: normal inspection Foot/Toe exam: Present: normal inspection, full ROM Gait: observed and normal Neurological exam: Present: alert, oriented X3, CN II-XII intact Psychiatric exam: Present: normal affect, normal mood Course Vital Signs 11/16/17 11/17/17 23:29 02:35 Temperature 98.4 F 97.1 F L Pulse Rate 70 82 Respiratory 16 18 Rate Blood Pressure 113/69 131/71 O2 Sat by Pulse 98 97 Oximetry Medical Decision Making - Medical Decision Making 22 year old male with R ankle pain and swelling after rolling ankle, denies foot pain. Ankle xray reviewed and negative for fracture, evidence of soft tissue swelling consistent with sprain. Discussed RICE and use crutch for a few days. Return parameters discussed. - Radiology Data Radiology results: report reviewed Ankle xray was reviewed and negative for fracture, dislocation. Evidence of soft tissue swelling. Disposition Clinical Impression: Right ankle sprain, Knee abrasion Disposition: HOME SELF-CARE Condition: Good Instructions: Ankle Sprain (ED) Additional Instructions: REst, ice, elevate extremity. For the [place] wrap for swelling and pain. Take Motrin Tylenol for pain. Ambulate with crutches. Prescriptions: Ibuprofen [Motrin] 400 mg PO Q4H #20 tab Is patient prescribed a controlled substance at d/c from ED?: No When asked, does pt state using other controlled substances?: No If prescribed controlled substance>3 days was MAPS reviewed?: No If opioid is for acute pain is fill amount 7 days or less?: No If Rx opioid, was Start Talking consent form obtained?: No Referrals: Fortino Polanco MD [Primary Care Provider] - 1-2 days Time of Disposition: 02:20
[2017-11-17 02:36] VITALS: BP 131/71; PULSE 82; RESP 18; TEMP 97.1
== END 2017-11-17 02:36 | disposition home or self-care (01) ==
LOC: EC 22:30 → SUPCPDRO 22:30 → EC 11-17 02:36
DX: S93.401A Sprain of unspecified ligament of right ankle, initial encounter (principal); S80.212A Abrasion, left knee, initial encounter; S80.211A Abrasion, right knee, initial encounter; G40.909 Epilepsy, unspecified, not intractable, without status epilepticus; Z79.899 Other long term (current) drug therapy; W01.0XXA Fall on same level from slipping, tripping and stumbling without subsequent striking against object, initial encounter; Y93.02 Activity, running; Y92.219 Unspecified school as the place of occurrence of the external cause
CPT/HCPCS: 99284

== ENCOUNTER 2018-03-21 20:58 | Emergency (ER) | payer MEDICARE, OTHER ==
[2018-03-21 21:09] VITALS: RESP 18
--- NOTE | 2018-03-21 21:36 | ED ---
Dizziness HPI - General Chief Complaint: Dizziness Stated Complaint: fall,dizziness Time Seen by Provider: 03/21/18 21:23 Source: patient Mode of arrival: wheelchair Limitations: no limitations - History of Present Illness MD Complaint: dizziness Onset/Timin -: hour(s) Timing: sudden onset, now resolved Severity: moderate Improves With: nothing Worsens With: nothing Associated Symptoms: denies other symptoms - Related Data Home Medications Medication Instructions Recorded Confirmed Clobazam [Onfi] 20 mg PO BID@0800,2100 02/06/17 03/21/18 Cholecalciferol (Vitamin D3) 2,000 unit PO DAILY 03/21/18 03/21/18 [Vitamin D3] Divalproex Sodium [Divalproex 250 mg PO TID@0800,1600,2100 03/21/18 03/21/18 Sodium ER] OXcarbazepine [Trileptal] 300 mg PO BID@0800,2100 03/21/18 03/21/18 traZODone HCL 50 mg PO HS 03/21/18 03/21/18 Allergies Allergy/AdvReac Type Severity Reaction Status Date / Time No Known Allergies Allergy Verified 03/21/18 21:18 Review of Systems ROS Statement: Those systems with pertinent positive or pertinent negative responses have been documented in the HPI. ROS Other: All systems not noted in ROS Statement are negative. Constitutional: Denies: fever, weakness Respiratory: Denies: cough, dyspnea Cardiovascular: Denies: chest pain, palpitations, orthopnea, edema, syncope Gastrointestinal: Denies: abdominal pain, vomiting, diarrhea Genitourinary: Denies: dysuria, frequency, hematuria Musculoskeletal: Denies: back pain Neurological: Denies: headache, weakness, numbness Past Medical History Past Medical History: Seizure Disorder Additional Past Medical History / Comment(s): status epilepticus, hepatitis- History of Any Multi-Drug Resistant Organisms: None Reported Past Surgical History: No Surgical Hx Reported Additional Past Surgical History / Comment(s): left wrist surgery Past Anesthesia/Blood Transfusion Reactions: No Reported Reaction Additional Past Anesthesia/Blood Transfusion Reaction / Comment(s): Pt has never had surgery. Past Psychological History: Anxiety, Depression Smoking Status: Current every day smoker Past Alcohol Use History: None Reported Past Drug Use History: None Reported - Past Family History Father Additional Family Medical History / Comment(s): epilepsy in 2 paternal aunts, father of brain aneurysm Brother(s) Additional Family Medical History / Comment(s): Patient has one brother and one stepsister. Mother Additional Family Medical History / Comment(s): Patient is unable to provide any information regarding his family medical history. General Exam Limitations: no limitations General appearance: alert, in no apparent distress Head exam: Present: atraumatic, normocephalic Eye exam: Present: normal appearance. Absent: scleral icterus, conjunctival injection ENT exam: Present: normal oropharynx Neck exam: Present: normal inspection, full ROM. Absent: tenderness, meningismus Respiratory exam: Present: normal lung sounds bilaterally. Absent: respiratory distress, wheezes, rales, rhonchi, stridor Cardiovascular Exam: Present: regular rate, normal rhythm, normal heart sounds. Absent: systolic murmur, diastolic murmur, rubs, gallop GI/Abdominal exam: Present: soft. Absent: distended, tenderness, guarding, rebound, mass Extremities exam: Present: normal inspection, normal capillary refill. Absent: pedal edema, calf tenderness Back exam: Present: normal inspection. Absent: CVA tenderness (R), CVA tenderness (L) Neurological exam: Present: alert, CN II-XII intact, normal gait. Absent: motor sensory deficit Skin exam: Present: warm, dry, intact, normal color. Absent: rash Course Vital Signs 03/21/18 03/21/18 03/21/18 21:05 21:53 22:36 Temperature 98.3 F Pulse Rate 87 69 Pulse Rate [ 80 Sitting] Pulse Rate [ 91 Standing] Pulse Rate [ 76 Supine] Respiratory 18 18 Rate Blood Pressure 117/72 115/56 Blood Pressure 115/60 [Left Arm Sitting] Blood Pressure 116/69 [Left Arm Standing] Blood Pressure 117/55 [Left Arm Supine] O2 Sat by Pulse 98 95 Oximetry EKG Findings - EKG Results: EKG: interpreted by BOLIVAR GREY, sinus rhythm (76 bpm), normal axis, normal QRS, normal ST/T, no acute changes - [place], Pacemaker, Normal: Normal tracing: normal tracing Medical Decision Making - Lab Data Result diagrams: 03/21/18 21:49 03/21/18 21:49 Lab Results 03/21/18 03/21/18 Range/Units 21:49 21:49 WBC 5.0 (3.8-10.6) k/uL RBC 4.59 (4.30-5.90) m/uL Hgb 15.4 (13.0-17.5) gm/dL Hct 42.6 (39.0-53.0) % MCV 92.8 (80.0-100.0) fL MCH 33.5 (25.0-35.0) pg MCHC 36.2 (31.0-37.0) g/dL RDW 11.5 (11.5-15.5) % Plt Count 152 (150-450) k/uL Neutrophils % 38 % Lymphocytes % 43 % Monocytes % 9 % Eosinophils % 7 % Basophils % 0 % Neutrophils # 1.9 (1.3-7.7) k/uL Lymphocytes # 2.2 (1.0-4.8) k/uL Monocytes # 0.5 (0-1.0) k/uL Eosinophils # 0.4 (0-0.7) k/uL Basophils # 0.0 (0-0.2) k/uL Sodium 140 (137-145) mmol/L Potassium 3.8 (3.5-5.1) mmol/L Chloride 102 (98-107) mmol/L Carbon Dioxide 27 (22-30) mmol/L Anion Gap 11 mmol/L BUN 18 (9-20) mg/dL Creatinine 1.05 (0.66-1.25) mg/dL Est GFR (CKD-EPI)AfAm >90 (>60 ml/min/1.73 sqM) Est GFR (CKD-EPI)NonAf >90 (>60 ml/min/1.73 sqM) Glucose 126 H (74-99) mg/dL Calcium 9.4 (8.4-10.2) mg/dL Total Bilirubin 0.7 (0.2-1.3) mg/dL AST 24 (17-59) U/L ALT 23 (21-72) U/L Alkaline Phosphatase 61 (38-126) U/L Total Protein 7.0 (6.3-8.2) g/dL Albumin 4.3 (3.5-5.0) g/dL Valproic Acid 68.0 ug/mL Disposition Clinical Impression: Dizziness Disposition: HOME SELF-CARE Condition: Good Instructions: Dizziness (ED) Is patient prescribed a controlled substance at d/c from ED?: No Referrals: None,Stated [Primary Care Provider] - 1-2 days Lois Ching MD [STAFF PHYSICIAN] - 1-2 days
[2018-03-21 22:04] LABS: Basophils % (A) 0 %; Eosinophils # (A) 0.4 k/uL (0-0.7); Eosinophils % (A) 7 %; HCT 42.6 % (39.0-53.0); HGB 15.4 gm/dL (13.0-17.5); Lymphocytes # (A) 2.2 k/uL (1.0-4.8); Lymphocytes % (A) 43 %; MCH 33.5 pg (25.0-35.0); MCHC 36.2 g/dL (31.0-37.0); MCV 92.8 fL (80.0-100.0); Mean Platelet Volume 7.2; Monocytes # (A) 0.5 k/uL (0-1.0); Monocytes % (A) 9 %; Neutrophils # (A) 1.9 k/uL (1.3-7.7); Neutrophils % (A) 38 %; Platelet Count 152 k/uL (150-450); RBC 4.59 m/uL (4.30-5.90); RDW 11.5 % (11.5-15.5)
[2018-03-21 22:17] LABS: ALT 23 U/L (21-72); AST 24 U/L (17-59); Albumin 4.3 g/dL (3.5-5.0); Alkaline Phosphatase 61 U/L (38-126); Anion Gap 11 mmol/L; Blood Urea Nitrogen 18 mg/dL (9-20); Calcium 9.4 mg/dL (8.4-10.2); Carbon Dioxide 27 mmol/L (22-30); Chloride 102 mmol/L (98-107); Glucose 126 mg/dL (74-99); Potassium 3.8 mmol/L (3.5-5.1); Sodium 140 mmol/L (137-145); Total Bilirubin 0.7 mg/dL (0.2-1.3)
[2018-03-21 23:05] VITALS: BP 98/65; PULSE 67; TEMP 98.4
== END 2018-03-21 23:06 | disposition home or self-care (01) ==
LOC: EC 20:58
DX: R42 Dizziness and giddiness (principal); F41.9 Anxiety disorder, unspecified; F32.9 Major depressive disorder, single episode, unspecified; F17.200 Nicotine dependence, unspecified, uncomplicated; G40.909 Epilepsy, unspecified, not intractable, without status epilepticus; Z79.899 Other long term (current) drug therapy; W19.XXXA Unspecified fall, initial encounter
CPT/HCPCS: 36415; 80053; 80164; 85025; 93005; 99284

== ENCOUNTER 2020-10-01 22:43 | Emergency (ER) | payer MEDICARE, OTHER ==
[2020-10-01 23:00] VITALS: BP 135/95; PULSE 94; RESP 18; TEMP 98
[2020-10-01] MEDS ORDERED: BACITRACIN OINT 1 EACH PACKET TOPICAL STA (23:41)
--- NOTE | 2020-10-01 23:45 | ED ---
General Adult HPI - General Chief complaint: Skin/Abscess/Foreign Body Stated complaint: Pain in shoulder Time Seen by Provider: 10/01/20 23:37 Source: patient Mode of arrival: ambulatory Limitations: no limitations - History of Present Illness Initial comments: 25-year-old male with a past medical history as status epilepticus, hepatitis presents to the emergency room for a chief complaint of bumps on his shoulder. Patient states he noticed these when he woke up. States today her if he presses on them. Patient denies fevers. Denies these being anywhere else.Patient has no other complaints at this time including shortness of breath, chest pain, abdominal pain, nausea or vomiting, headache, or visual changes. - Related Data Home Medications Medication Instructions Recorded Confirmed Clobazam [Onfi] 20 mg PO BID@0800,2100 02/06/17 03/21/18 Cholecalciferol (Vitamin D3) 2,000 unit PO DAILY 03/21/18 03/21/18 [Vitamin D3] Divalproex Sodium [Divalproex 250 mg PO TID@0800,1600,2100 03/21/18 03/21/18 Sodium ER] OXcarbazepine [Trileptal] 300 mg PO BID@0800,2100 03/21/18 03/21/18 traZODone HCL 50 mg PO HS 03/21/18 03/21/18 Allergies Allergy/AdvReac Type Severity Reaction Status Date / Time No Known Allergies Allergy Verified 10/01/20 22:57 Review of Systems ROS Statement: Those systems with pertinent positive or pertinent negative responses have been documented in the HPI. ROS Other: All systems not noted in ROS Statement are negative. Past Medical History Past Medical History: Seizure Disorder Additional Past Medical History / Comment(s): status epilepticus, hepatitis- History of Any Multi-Drug Resistant Organisms: None Reported Past Surgical History: No Surgical Hx Reported Additional Past Surgical History / Comment(s): left wrist surgery Past Anesthesia/Blood Transfusion Reactions: No Reported Reaction Additional Past Anesthesia/Blood Transfusion Reaction / Comment(s): Pt has never had surgery. Past Psychological History: Anxiety, Depression Smoking Status: Current some day smoker Past Alcohol Use History: None Reported Past Drug Use History: None Reported - Past Family History Father Additional Family Medical History / Comment(s): epilepsy in 2 paternal aunts, father of brain aneurysm Brother(s) Additional Family Medical History / Comment(s): Patient has one brother and one stepsister. Mother Additional Family Medical History / Comment(s): Patient is unable to provide any information regarding his family medical history. General Exam Limitations: no limitations General appearance: alert Head exam: Present: atraumatic, normocephalic, normal inspection Eye exam: Present: normal appearance ENT exam: Present: normal exam, mucous membranes moist Neck exam: Present: normal inspection. Absent: tenderness, meningismus, lymphadenopathy Respiratory exam: Present: normal lung sounds bilaterally. Absent: respiratory distress, wheezes, rales, rhonchi, stridor Cardiovascular Exam: Present: regular rate, normal rhythm, normal heart sounds. Absent: systolic murmur, diastolic murmur, rubs, gallop, clicks Extremities exam: Present: other (Patient has several small pustules noted on the back consistent with acne, no abscesses) Course Vital Signs 10/01/20 22:57 Temperature 98.0 F Pulse Rate 94 Respiratory 18 Rate Blood Pressure 135/95 O2 Sat by Pulse 97 Oximetry Medical Decision Making - Medical Decision Making Patient will be treated with antibiotic ointment. When he follow up with primary care. He will return here for any worsening symptoms. Disposition Clinical Impression: Pustule, Folliculitis Disposition: HOME SELF-CARE Condition: Good Instructions (If sedation given, give patient instructions): Folliculitis (ED) Additional Instructions: Please apply antibiotic ointment. Try an acne body wash or antibacterial soap. Follow up with primary care. Return to the ER for any worsening symptoms. Is patient prescribed a controlled substance at d/c from ED?: No Referrals: Fred Colon MD [REFERRING] - 1-2 days Time of Disposition: 23:42
== END 2020-10-01 23:50 | disposition home or self-care (01) ==
LOC: EEVIPCON 22:43 → EC 22:43
DX: L08.9 Local infection of the skin and subcutaneous tissue, unspecified (principal); L73.9 Follicular disorder, unspecified
CPT/HCPCS: 99283

== ENCOUNTER 2022-05-10 20:07 | Emergency (ER) | payer MEDICARE, OTHER ==
[2022-05-10] MEDS ORDERED: SODIUM CHLORIDE 0.9% 500 ML 500 ML IV STA (20:15)
[2022-05-10 20:18] VITALS: TEMP 97.9
[2022-05-10 20:24] LABS: Basophils % (A) 1 %; Eosinophils # (A) 0.3 k/uL (0-0.7); Eosinophils % (A) 5 %; HCT 43.8 % (39.0-53.0); HGB 16.1 gm/dL (13.0-17.5); Lymphocytes # (A) 2.2 k/uL (1.0-4.8); Lymphocytes % (A) 35 %; MCH 32.7 pg (25.0-35.0); MCHC 36.7 g/dL (31.0-37.0); MCV 89.1 fL (80.0-100.0); Mean Platelet Volume 8.7; Monocytes # (A) 0.3 k/uL (0-1.0); Monocytes % (A) 5 %; Neutrophils # (A) 3.2 k/uL (1.3-7.7); Neutrophils % (A) 51 %; Platelet Count 182 k/uL (150-450); RBC 4.91 m/uL (4.30-5.90); RDW 12.3 % (11.5-15.5); WBC 6.3 k/uL (3.8-10.6)
[2022-05-10 20:36] LABS: ALT 19 U/L (4-49); AST 26 U/L (17-59); African American GFR (CKD) >90 (>60 ml/min/1.73 sqM); Albumin 5.3 g/dL (3.5-5.0); Alkaline Phosphatase 73 U/L (38-126); Anion Gap 14 mmol/L; Blood Urea Nitrogen 11 mg/dL (9-20); Calcium 9.6 mg/dL (8.4-10.2); Carbon Dioxide 23 mmol/L (22-30); Chloride 100 mmol/L (98-107); Glucose 89 mg/dL (74-99); Non-African American GFR(CKD) >90 (>60 ml/min/1.73 sqM); Potassium 4.3 mmol/L (3.5-5.1); Sodium 137 mmol/L (137-145); Total Bilirubin 0.9 mg/dL (0.2-1.3); Total Protein 8.4 g/dL (6.3-8.2)
[2022-05-10 20:42] LABS: Valproic Acid (Depakene) <10.0 ug/mL
[2022-05-10] MEDS ORDERED: DIVALPROEX 500 MG TABLET.DR PO STA (22:49)
--- NOTE | 2022-05-10 22:49 | ED ---
Seizure HPI - General Chief Complaint: Seizure Stated Complaint: Seizure Time Seen by Provider: 05/10/22 20:13 Source: EMS Mode of arrival: EMS Limitations: altered mental status - History of Present Illness Initial Comments: Patient is 27-year-old man who is here to be evaluated after he had a generalized tonic-clonic seizure. Patient has history of seizure disorder. Patient denied injury related to the seizure. There is a question of whether the patient had been compliant with medications. MD Complaint: seizure -: minutes(s) Description of Episode: loss of consciousness, tonic-clonic movement -: minutes(s) Witnessed: yes - by bystander Trauma: No Seizure History: known seizure disorder Place: home Possible Precipitating Event: none Associated Symptoms: denies other symptoms Treatments Prior to Arrival: none - Related Data Home Medications Medication Instructions Recorded Confirmed cloBAZam [Onfi] 20 mg PO BID@0800,2100 02/06/17 03/21/18 Cholecalciferol (Vitamin D3) 2,000 unit PO DAILY 03/21/18 03/21/18 [Vitamin D3] Divalproex Sodium [Divalproex 250 mg PO TID@0800,1600,2100 03/21/18 03/21/18 Sodium ER] OXcarbazepine [Trileptal] 300 mg PO BID@0800,2100 03/21/18 03/21/18 traZODone HCL 50 mg PO HS 03/21/18 03/21/18 Allergies Allergy/AdvReac Type Severity Reaction Status Date / Time No Known Allergies Allergy Verified 05/10/22 20:18 Review of Systems ROS Statement: Those systems with pertinent positive or pertinent negative responses have been documented in the HPI. ROS Other: All systems not noted in ROS Statement are negative. Constitutional: Denies: fever, weakness Eyes: Denies: vision change Respiratory: Denies: cough, dyspnea Cardiovascular: Denies: chest pain, syncope Gastrointestinal: Denies: abdominal pain, vomiting, diarrhea Genitourinary: Denies: dysuria, hematuria Musculoskeletal: Denies: back pain Skin: Denies: rash Neurological: Denies: headache, weakness Past Medical History Past Medical History: Seizure Disorder Additional Past Medical History / Comment(s): status epilepticus, hepatitis- History of Any Multi-Drug Resistant Organisms: None Reported Past Surgical History: No Surgical Hx Reported Additional Past Surgical History / Comment(s): left wrist surgery Past Anesthesia/Blood Transfusion Reactions: No Reported Reaction Additional Past Anesthesia/Blood Transfusion Reaction / Comment(s): Pt has never had surgery. Past Psychological History: Anxiety, Depression Smoking Status: Current some day smoker Past Alcohol Use History: None Reported Past Drug Use History: None Reported - Past Family History Father Additional Family Medical History / Comment(s): epilepsy in 2 paternal aunts, father of brain aneurysm Brother(s) Additional Family Medical History / Comment(s): Patient has one brother and one stepsister. Mother Additional Family Medical History / Comment(s): Patient is unable to provide any information regarding his family medical history. General Exam Limitations: altered mental status General appearance: alert, in no apparent distress Head exam: Present: atraumatic, normocephalic Eye exam: Present: normal appearance, PERRL, EOMI. Absent: scleral icterus, conjunctival injection Neck exam: Present: normal inspection, full ROM. Absent: tenderness Respiratory exam: Present: normal lung sounds bilaterally. Absent: respiratory distress, wheezes, rales, rhonchi, stridor Cardiovascular Exam: Present: normal rhythm, tachycardia, normal heart sounds. Absent: systolic murmur, diastolic murmur, rubs, gallop GI/Abdominal exam: Present: soft. Absent: distended, tenderness, guarding, rebound, rigid, mass Extremities exam: Present: normal inspection, normal capillary refill. Absent: pedal edema, calf tenderness Back exam: Present: normal inspection. Absent: CVA tenderness (R), CVA tenderness (L) Neurological exam: Present: alert, CN II-XII intact. Absent: motor sensory deficit Skin exam: Present: warm, dry, intact, normal color. Absent: rash Course Vital Signs 05/10/22 05/10/22 05/10/22 20:13 20:20 22:22 Temperature 97.9 F Pulse Rate 110 H 98 77 Respiratory 16 16 Rate Blood Pressure 130/91 114/75 O2 Sat by Pulse 98 97 98 Oximetry 05/10/22 23:03 Temperature Pulse Rate 70 Respiratory 18 Rate Blood Pressure 121/75 O2 Sat by Pulse 98 Oximetry Medical Decision Making - Medical Decision Making 27-year-old man here for evaluation following seizure. Patient has known seizure disorder. On reevaluation, patient back at baseline. Denies any injury. Patient states she may have missed doses of medication. Reviewed that the Depakote level is subtherapeutic and did give loading dose. In addition patient's mother phone while I was at bedside and I discussed further care and follow-up with her. She will call patient's neurologist tomorrow for appointment. - Lab Data Result diagrams: 05/10/22 20:16 05/10/22 20:16 Lab Results 05/10/22 05/10/22 Range/Units 20:16 20:16 WBC 6.3 (3.8-10.6) k/uL RBC 4.91 (4.30-5.90) m/uL Hgb 16.1 (13.0-17.5) gm/dL Hct 43.8 (39.0-53.0) % MCV 89.1 (80.0-100.0) fL MCH 32.7 (25.0-35.0) pg MCHC 36.7 (31.0-37.0) g/dL RDW 12.3 (11.5-15.5) % Plt Count 182 (150-450) k/uL MPV 8.7 Neutrophils % 51 % Lymphocytes % 35 % Monocytes % 5 % Eosinophils % 5 % Basophils % 1 % Neutrophils # 3.2 (1.3-7.7) k/uL Lymphocytes # 2.2 (1.0-4.8) k/uL Monocytes # 0.3 (0-1.0) k/uL Eosinophils # 0.3 (0-0.7) k/uL Basophils # 0.0 (0-0.2) k/uL Sodium 137 (137-145) mmol/L Potassium 4.3 (3.5-5.1) mmol/L Chloride 100 (98-107) mmol/L Carbon Dioxide 23 (22-30) mmol/L Anion Gap 14 mmol/L BUN 11 (9-20) mg/dL Creatinine 0.92 (0.66-1.25) mg/dL Est GFR (CKD-EPI)AfAm >90 (>60 ml/min/1.73 sqM) Est GFR (CKD-EPI)NonAf >90 (>60 ml/min/1.73 sqM) Glucose 89 (74-99) mg/dL Calcium 9.6 (8.4-10.2) mg/dL Total Bilirubin 0.9 (0.2-1.3) mg/dL AST 26 (17-59) U/L ALT 19 (4-49) U/L Alkaline Phosphatase 73 (38-126) U/L Total Protein 8.4 H (6.3-8.2) g/dL Albumin 5.3 H (3.5-5.0) g/dL Valproic Acid <10.0 ug/mL Disposition Clinical Impression: Seizure disorder Disposition: HOME SELF-CARE Condition: Good Instructions (If sedation given, give patient instructions): Seizure/Epilepsy Discharge Instructions & Follow-Up, Recurrent Seizures in Adults (ED) Is patient prescribed a controlled substance at d/c from ED?: No Referrals: None,Stated [Primary Care Provider] - 1-2 days Farhat Colin MD [STAFF PHYSICIAN] - 1-2 days
[2022-05-10 23:05] VITALS: BP 121/75; PULSE 70; RESP 18
== END 2022-05-10 23:05 | disposition home or self-care (01) ==
LOC: EC 20:07
DX: G40.909 Epilepsy, unspecified, not intractable, without status epilepticus (principal); F41.9 Anxiety disorder, unspecified; F32.A Depression, unspecified; F17.200 Nicotine dependence, unspecified, uncomplicated; Z79.899 Other long term (current) drug therapy
CPT/HCPCS: 36415; 80053; 80164; 85025; 99284